=== PATIENT | male | born 1970 | race Caucasian/White ===

== ENCOUNTER 2016-11-29 17:21 | Emergency (ER) | payer SELFPAY ==
[2016-11-29 18:34] LABS: HEMATOCRIT 44.9 % (37.9-51.0); HEMOGLOBIN 15.4 g/dL (13.5-17.0); HGB HCT DIFFERENCE 1.3; MEAN CORPUSCULAR HEMOGLOBIN 33.4 pg (27.0-33.4); MEAN CORPUSCULAR HGB CONC 34.4 g/dL (32.0-36.0); MEAN CORPUSCULAR VOLUME 97 fl (80-97); RED BLOOD COUNT 4.62 10^6/uL (4.35-5.55); RED CELL DISTRIBUTION WIDTH 13.4 % (11.5-14.0); WHITE BLOOD COUNT 5.2 10^3/uL (4.0-10.5)
[2016-11-29 18:40] LABS: ANION GAP 14 (5-19); BLOOD UREA NITROGEN 9 mg/dL (7-20); CALCIUM 9.1 mg/dL (8.4-10.2); CARBON DIOXIDE 28 mmol/L (22-30); CHLORIDE 104 mmol/L (98-107); CREATININE RESULT 0.98 mg/dL (0.52-1.25); GLUCOSE 97 mg/dL (75-110); LIPASE 396.2 U/L (23-300); POTASSIUM 4.1 mmol/L (3.6-5.0); SODIUM 145.7 mmol/L (137-145)
[2016-11-29] MEDS ORDERED: LIDOCAINE 5% (700 MG) TRANSDERMAL ADH..PATCH TP ONE (18:46)
[2016-11-29] MEDS ORDERED: PREDNISONE 20 MG TABLET PO ONE (18:46)
--- NOTE | 2016-11-29 18:53 | ER Document Report ---
ED General - General Chief Complaint: Chest Pain Stated Complaint: CHEST PAIN Notes: Patient is a 46-year-old male who presents after he struck his left anterior chest wall 2 weeks ago after mechanical fall. States that since that time he has had a constant, dull, throbbing pain. States that coughing or moving worsens the pain. Nothing improves the pain. No prior history of similar injury. He has not seen his primary care physician regarding today's concerns. He denies any shortness of breath, hemoptysis, worsened. TRAVEL OUTSIDE OF THE [place] IN LAST 30 DAYS: No - Related Data Allergies/Adverse Reactions: No Known Allergies Allergy (Verified 02/09/14 10:56) Past Medical History - General Information source: Patient - Social History Smoking Status: Current Every Day Smoker Frequency of alcohol use: Social Drug Abuse: None Family History: Reviewed & Not Pertinent Pulmonary Medical History: Reports: Hx COPD - Immunizations Immunizations up to date: Yes Hx Diphtheria, Pertussis, Tetanus Vaccination: Yes Review of Systems - Review of Systems Notes: Constitutional: Negative for fever. HENT: Negative for sore throat. Eyes: Negative for visual changes. Cardiovascular: Negative for chest pain. Respiratory: Negative for shortness of breath. Gastrointestinal: Negative for abdominal pain, vomiting or diarrhea. Genitourinary: Negative for dysuria. Musculoskeletal: Positive for left chest wall pain Skin: Negative for rash. Neurological: Negative for headaches, weakness or numbness. 10 point ROS negative except as marked above and in HPI. Physical Exam - Vital signs Vitals: Temp 97.7 F 11/29/16 17:53 Notes: PHYSICAL EXAMINATION: GENERAL: Well-appearing, well-nourished and in no acute distress. HEAD: Atraumatic, normocephalic. EYES: Pupils equal round and reactive to light, extraocular movements intact, sclera anicteric, conjunctiva are normal. ENT: nares patent, oropharynx clear without exudates. Moist mucous membranes. NECK: Normal range of motion, supple without lymphadenopathy LUNGS: Breath sounds clear to auscultation bilaterally and equal. No wheezes rales or rhonchi. HEART: Regular rate and rhythm without murmurs Chest wall: Pain on palpation of the left lower ribs ABDOMEN: Soft, nontender, normoactive bowel sounds. No guarding, no rebound. No masses appreciated. EXTREMITIES: Normal range of motion, no pitting or edema. No cyanosis. NEUROLOGICAL: No focal neurological deficits. Moves all extremities spontaneously and on command. PSYCH: Normal mood, normal affect. SKIN: Warm, Dry, normal turgor, no rashes or lesions noted. Course - Re-evaluation Re-evalutation: 11/29/16 18:47 Patient presents with 2 weeks of left lower rib pain after direct trauma to the area 2 weeks ago. Chest x-ray without evidence of acute rib fracture. Patient is breathing without difficulty. He does have focal pain to the left ninth and 10th ribs. Labs unremarkable with exception of a mildly elevated lipase likely secondary to patient's use of alcohol. I recommended the patient continue conservative measures at home and started on steroids for COPD exacerbation as he does have mild wheezing and I suspect his coughing is exacerbating his pain. Patient is also requested assistance with sleeping stating that he has had severe insomnia for the past 1 year. He is not have a primary care doctor within to follow-up for this concern. I have therefore started him on a course of trazodone and told him that he will need to follow-up with a primary care physician as soon as possible.At this time will discharge with return precautions and follow-up recommendations. Verbal discharge instructions given a the bedside and opportunity for questions given. Medication warnings reviewed. Patient is in agreement with this plan and has verbalized understanding of return precautions and the need for primary care follow-up in the next 24-72 hours. - Vital Signs Vital signs: Temp Pulse Resp BP Pulse Ox 98.3 F 14 104/60 97 11/29/16 19:01 11/29/16 19:09 11/29/16 19:09 11/29/16 19:09 - Laboratory Result Diagrams: 11/29/16 17:49 11/29/16 17:49 Laboratory results interpreted by me: 11/29/16 17:49 Sodium 145.7 H Lipase 396.2 H - Diagnostic Test Radiology reviewed: Image reviewed, Reports reviewed Radiology results interpreted by me: 11/30/16 02:53 Chest x-ray: No acute fractures Discharge - Discharge Clinical Impression: Rib pain on left side, COPD exacerbation Insomnia Qualifiers: Insomnia type: unspecified Qualified Code(s): G47.00 - Insomnia, unspecified Condition: Good Disposition: HOME, SELF-CARE Additional Instructions: Your chest wall pain is due to bruising of your ribs. This pain can last for up to 6 weeks. It is very important that you continue to take purposeful deep breaths. For your pain: Continue to take ibuprofen 600 mg every 6 hours or Tylenol 1000 mg every 6 hours. Apply local lidocaine to the area per bottle instructions. There is a product sold [id number] called "Aspercreme with lidocaine" that you can use for this purpose. Please follow-up with your primary care doctor in the next 2-3 days. Return to the emergency department immediately if you develop worsening shortness of breath, increased pain, begin coughing blood, pass out, or have any other symptoms that are worrisome to you. You have also been started on a course of steroids to help treat your COPD. Take as directed. You have also been started on a medication called trazodone to help you sleep at night. Take 50 mg approximately one hour prior to going to bed. Try this for one week and if it does not improve your sleep you can go up to 100 mg before bed. Again, you need to follow-up with primary care doctor regarding your chronic insomnia. Prescriptions: Trazodone HCl 50 mg PO QHS PRN #60 tablet PRN Reason: Prednisone [Deltasone 20 mg Tablet] 3 tab PO DAILY 5 Days Forms: Smoking Cessation Education
[2016-11-29 19:12] VITALS: BP 104/60
--- NOTE | 2016-11-29 23:50 | EKG REPORT ---
SEVERITY:- ABNORMAL ECG - SINUS RHYTHM NONSPECIFIC T ABNORMALITIES, INFERIOR LEADS [facility] : Confirmed by: Rukhsana Mcmanus 29-Nov-2016 23:49:15
== END 2016-11-29 19:12 | disposition home or self-care (01) ==
LOC: ER 17:21
DX: R07.81 Pleurodynia (principal); W10.9XXA Fall (on) (from) unspecified stairs and steps, initial encounter; J44.1 Chronic obstructive pulmonary disease with (acute) exacerbation; G47.00 Insomnia, unspecified; F17.200 Nicotine dependence, unspecified, uncomplicated; R74.8 Abnormal levels of other serum enzymes
CPT/HCPCS: 93005; 99285; 36415; 83690; 85027; 80048; 84484; 71010; 93010; J7512

== ENCOUNTER 2017-01-06 18:22 | Emergency (ER) | payer SELFPAY ==
--- NOTE | 2017-01-06 18:42 | ER Document Report ---
ED Allergic Reaction - General Time seen by provider: 18:35 Mode of Arrival: Medic Information source: Patient, Emergency Med Personnel TRAVEL OUTSIDE OF THE [place] IN LAST 30 DAYS: No - HPI Onset: Other - see HPI note Onset/Duration: Persistent Quality of pain: Other - itchiness Skin rash / itching: Facial, Trunk, Extremities, "Redness" Similar symptoms previously: Yes Recently seen / treated by doctor: No <STEVE HEARD - Last Filed: 01/06/17 21:22> <CARLITA HASSAN - Last Filed: 01/06/17 21:36> - General Stated Complaint: NAUSEA/VOMITING Notes: Patient is a 46 year old male presenting to the emergency department for a rash and possible allergic reaction. Patient states that for the past 8 years he has had a rash breakout x1 each month. Patient has never been treated for this rash. Patient states that his rash has become more persistent and has been occurring 2-3 times each week now. Patient states he also has had some vomiting and diarrhea with this rash which is new. Patient was brought in via EMS who state that the patient was fine at time of arrival and then he felt like he was starting to have the rash/reaction so EMS gave 25 mg Benadryl; this relieved the patient's symptoms. Upon arrival patient had the same feeling that the rash was coming back and EMS gave another 25 mg Benadryl; this did not help the reaction or rash. Patient also received 4 mg zofran for his nausea via EMS. ( STEVE HEARD) - Related Data Allergies/Adverse Reactions: No Known Allergies Allergy (Verified 02/09/14 10:56) Past Medical History - General Information source: Patient - Social History Smoking Status: Smoker,Current Status Unk Family History: None Pulmonary Medical History: Reports: Hx COPD - Immunizations Immunizations up to date: Yes Hx Diphtheria, Pertussis, Tetanus Vaccination: Yes <STEVE HEARD - Last Filed: 01/06/17 21:22> Review of Systems - Review of Systems Constitutional: No symptoms reported EENT: No symptoms reported Cardiovascular: No symptoms reported Respiratory: No symptoms reported Gastrointestinal: No symptoms reported Genitourinary: No symptoms reported Male Genitourinary: No symptoms reported Musculoskeletal: No symptoms reported Skin: See HPI, Change in color, Rash Hematologic/Lymphatic: No symptoms reported Neurological/Psychological: No symptoms reported -: Yes All other systems reviewed and negative <STEVE HEARD - Last Filed: 01/06/17 21:22> Physical Exam <STEVE HEARD - Last Filed: 01/06/17 21:22> <CARLITA HASSAN - Last Filed: 01/06/17 21:36> - Notes Notes: GENERAL: Well-appearing, well-nourished and in no acute distress HEAD: Atraumatic, normocephalic EYES: Pupils equal round and reactive to light, extraocular movements intact, sclera anicteric, no conjunctival injection or discharge ENT: Nares patent, oropharynx clear without exudates, moist mucous membranes, no tongue or uvular edema. NECK: Normal range of motion, supple without lymphadenopathy. LUNGS: Coarse breath sounds bilaterally. No wheezes, rales, or rhonchi. HEART: Regular rate and rhythm without murmurs. ABDOMEN: Soft, non-tender, normoactive bowel sounds. No guarding, no rebound. No masses appreciated. No [place] sign. BACK: No CVA tenderness. EXTREMITIES: Normal range of motion, no calf tenderness, no edema. NEUROLOGICAL: Cranial nerves grossly intact. Normal speech, Normal sensory and motor exams. No gross cerebellar abnormalities. PSYCH: Normal mood, normal affect. SKIN: Warm, Dry, normal turgor, fine tactile macular diffuse erythematous blanching rash with some areas that are slightly more urticaria. (STEVE HEARD ) Course - Laboratory Result Diagrams: 01/06/17 19:52 01/06/17 19:52 <STEVE HEARD - Last Filed: 01/06/17 21:22> - Laboratory Result Diagrams: 01/06/17 19:52 01/06/17 19:52 - EKG Interpretation by Nc EKG shows normal: Sinus rhythm - Right axis deviation, left ventricular hypertrophy with repolarization changes Rate: Tachycardia <CARLITA HASSAN - Last Filed: 01/06/17 21:36> - Re-evaluation Re-evalutation: 01/06/17 21:28 Patient was reevaluated and had improved significantly. His rash and symptoms have resolved. He has no respiratory symptoms, wheezing or sensation of oral pharyngeal edema. As a suspected recurrent monthly and now appears to be worsening, I have asked him to get follow-up with an turret lathe machinist as there is no clear etiology. We will place him on prednisone as an outpatient and he will use Benadryl when necessary, returning if he seems to be worsening at all. 01/06/17 21:36 EKG discussed with patient for follow-up. (CARLITA HASSAN) - Laboratory Laboratory results interpreted by me: 01/06/17 01/06/17 19:52 19:52 WBC 16.0 H Hgb 17.7 H Hct 52.1 H Seg Neutrophils % 88.7 H Lymphocytes % 6.8 L Absolute Neutrophils 14.2 H Potassium 5.1 H Glucose 120 H 01/06/17 21:28 (CARLITA HASSAN) Discharge <STEVE HEARD - Last Filed: 01/06/17 21:22> <CARLITA HASSAN - Last Filed: 01/06/17 21:36> - Discharge Clinical Impression: Allergic reaction Condition: Good Disposition: HOME, SELF-CARE Instructions: Acute Allergic Reaction ([facility]) Additional Instructions: Use Benadryl 25-50 mg every 6 hours if you feel the reaction recurring. Please return though immediately if worsening or having difficulty breathing. Call Monday morning to arrange follow-up. Finish all of the prednisone as directed. Prescriptions: Prednisone [Deltasone 20 mg Tablet] 2 tab PO DAILY 5 Days Forms: Smoking Cessation Education Referrals: BLANCA TIPTON MD [ACTIVE STAFF] - Follow up in 3-5 days (Please call Monday morning to arrange follow-up with an insulation board calender operator and general production worker such as noted above.) Scribe Attestation: 01/06/17 21:34 I personally performed the services described in the documentation, reviewed and edited the documentation which was dictated to the scribe in my presence, and it accurately records my words and actions. (CARLITA HASSAN) Scribe Documentation - Scribe Written by Aden:: Steve Heard 01/06/17 21:00 acting as scribe for :: Arun <STEVE HEARD - Last Filed: 01/06/17 21:22>
[2017-01-06] MEDS ORDERED: FAMOTIDINE INJ/PF 20 MG/2 ML SDV IV ONE (18:43)
[2017-01-06] MEDS ORDERED: METHYLPREDNISOLONE INJ 125 MG/2 ML SDV IV ONE (18:43)
[2017-01-06 20:05] LABS: ABSOLUTE BASOPHILS # (AUTO) 0.1 10^3/uL (0.0-0.2); ABSOLUTE LYMPHOCYTES (AUTO) 1.1 10^3/uL (0.5-4.7); ABSOLUTE MONOCYTES (AUTO) 0.6 10^3/uL (0.1-1.4); ABSOLUTE NEUT (AUTO) 14.2 10^3/uL (1.7-8.2); BASOPHILS % (AUTO) 0.4 % (0-2); EOSINOPHILS % (AUTO) 0.2 % (0-6); HEMATOCRIT 52.1 % (37.9-51.0); HEMOGLOBIN 17.7 g/dL (13.5-17.0); LYMPHOCYTES % (AUTO) 6.8 % (13-45); MEAN CORPUSCULAR HEMOGLOBIN 32.8 pg (27.0-33.4); MEAN CORPUSCULAR VOLUME 97 fl (80-97); MONOCYTES % (AUTO) 3.9 % (3-13); RED BLOOD COUNT 5.39 10^6/uL (4.35-5.55); RED CELL DISTRIBUTION WIDTH 13.3 % (11.5-14.0); SEGMENTED NEUTROPHILS % (AUTO) 88.7 % (42-78)
[2017-01-06 20:18] LABS: ALANINE AMINOTRANSFERASE 27 U/L (21-72); ALBUMIN 4.4 g/dL (3.5-5.0); ALKALINE PHOSPHATASE 55 U/L (38-126); ANION GAP 15 (5-19); ASPARTATE AMINO TRANSFERASE 42 U/L (17-59); BILIRUBIN,DIRECT 0.3 mg/dL (0.0-0.4); BILIRUBIN,TOTAL 0.8 mg/dL (0.2-1.3); BLOOD UREA NITROGEN 16 mg/dL (7-20); CALCIUM 9.5 mg/dL (8.4-10.2); CARBON DIOXIDE 26 mmol/L (22-30); CHLORIDE 101 mmol/L (98-107); CREATININE RESULT 1.23 mg/dL (0.52-1.25); GLUCOSE 120 mg/dL (75-110); POTASSIUM 5.1 mmol/L (3.6-5.0); SODIUM 141.7 mmol/L (137-145); TOTAL PROTEIN 6.6 g/dL (6.3-8.2)
[2017-01-06 21:48] VITALS: BP 102/75
--- NOTE | 2017-01-07 10:14 | EKG REPORT ---
SEVERITY:- ABNORMAL ECG - SINUS TACHYCARDIA RIGHT ATRIAL ABNORMALITY BORDERLINE RIGHT AXIS DEVIATION CONSIDER LEFT VENTRICULAR HYPERTROPHY ABNORMAL T, CONSIDER ISCHEMIA, INFERIOR LEADS : Confirmed by: Jose Guadalupe Machado MD 07-Jan-2017 10:12:58
== END 2017-01-06 21:58 | disposition home or self-care (01) ==
LOC: ER 18:22
DX: T78.40XA Allergy, unspecified, initial encounter (principal); R11.2 Nausea with vomiting, unspecified; R21 Rash and other nonspecific skin eruption; R19.7 Diarrhea, unspecified
CPT/HCPCS: 93005; 99284; 96374; 96375; 36415; 85025; 80053; 93010; J2930; S0028